=== PATIENT | female | born 1955 | race Caucasian/White ===

== ENCOUNTER 2021-09-30 14:24 | Outpatient (CLI) | payer OTHER ==
[2021-09-30 14:48] LABS: CREATININE 0.7 mg/dL (0.4-1.0)
[2021-09-30] MEDS ORDERED: IOPAMIDOL-300 100 ML VIAL ONE (14:50)
[2021-09-30] MEDS ORDERED: IOVERSOL 320 50 ML VIAL ONE (14:50)
[2021-09-30] MEDS ORDERED: IOPAMIDOL-300 100 ML VIAL IVP ONE (15:58)
[2021-09-30] MEDS ORDERED: IOVERSOL 320 50 ML VIAL PO ONE (15:58)
--- NOTE | 2021-09-30 16:32 | CT Report ---
PROCEDURE: Abdomen/Pelvis W INDICATIONS: ENDOMETRIAL CA CONTRAST: IV CONTRAST: Isovue 300 ml: 100 PO CONTRAST: Optiray 320 ml50 TECHNIQUE: After the administration of contrast, 5 mm thick sections acquired from the diaphragms to the sym physis. 5 mm thick coronal and sagittal reformats were acquired. For radiation dose reduction, the following was used: automated exposure control, adjustment of mA and/or kV according to patient size . COMPARISON: None. FINDINGS: Image quality: Excellent. ABDOMEN: Lung bases: See separately dictated CT of the chest Solid organs: Liver and spleen are normal in size and enhancement. Gallbladder is normal Biliary s ystem is non dilated. Pancreas enhances normally. No adrenal nodules. Kidneys demonstrate normal s ize and enhancement, without hydronephrosis. The right kidney has a 4 cm cyst. Peritoneum and bowel: Bowel loops demonstrate normal wall thickness and caliber. No free fluid or a ir. There is diverticulosis without evidence of diverticulitis. Nodes and vessels: No retroperitoneal or mesenteric adenopathy by size criteria. Aorta and inferior vena cava are normal in size. The aorta has atherosclerotic calcifications. Miscellaneous: No ventral hernias. PELVIS: Genitourinary: Bladder wall thickness is normal. Status post hysterectomy. Miscellaneous: No inguinal hernias or adenopathy. Bones: Bilateral pars defects of L5 with grade 2 anterolisthesis of L5-S1 and severe degenerative ch anges of L5-S1. No suspicious bony lesions. No vertebral body compression fractures. IMPRESSION: 1. No evidence of metastatic disease or adenopathy. 2. Bilateral pars defects of L5 with grade 2 anterolisthesis and severe degenerative changes of L5-S1 . 3. Simple right renal cyst. 4. Diverticulosis without evidence of diverticulitis. 5. Status post hysterectomy. Reviewed by: Cody Fermin on 09/30/2021 4:31 PM PDT Approved by: Cody Fermin on 09/30/2021 4:31 PM PDT Station ID: [id number]
--- NOTE | 2021-09-30 16:37 | CT Report ---
PROCEDURE: CHEST W INDICATIONS: ENDOMETRIAL CA TECHNIQUE: After the administration of intravenous contrast, 1 mm axial images were acquired from the pulmonary apices through the posterior costophrenic angles. Axial 5 mm soft tissue kernel reconstructions were performed as well as 8 mm axial MIP and coronal and sagittal 5 mm reformations. For radiation dose reduction, the following was used: automated exposure control, adjustment of mA and/or kV according to patient size. COMPARISON: None. FINDINGS: Image quality: Excellent. Lungs and pleura: No acute air space opacities. No pleural effusions or pneumothorax. Central and peripheral airways are patent and normal in caliber. Mediastinum: Heart size is normal. No pericardial effusion. No mediastinal or hilar adenopathy by size criteria. Thoracic aorta and central pulmonary arteries are normal in size. Esophagus is filemon l in caliber. No hiatal hernia. The aorta and coronary arteries have atherosclerotic calcifications . Bones and chest wall: No suspicious bony lesions. No vertebral body compression fractures. No axil tuan or supraclavicular adenopathy by size criteria. Thyroid gland is normal. Abdomen: See separately dictated CT of the abdomen and pelvis. IMPRESSION: 1. No evidence of metastatic disease or adenopathy to the chest. 2. Coronary artery calcifications. Reviewed by: Cody Fermin on 09/30/2021 4:35 PM PDT Approved by: Cody Fermin on 09/30/2021 4:35 PM PDT Station ID: [id number]
== END 2021-09-30 14:25 | disposition home or self-care (01) ==
LOC: LAB 14:24
PROVIDERS: ATTEND Obstetrics & Gynecology Gynecologic Oncology
DX: C54.1 Malignant neoplasm of endometrium (principal); M43.16 Spondylolisthesis, lumbar region; M47.817 Spondylosis without myelopathy or radiculopathy, lumbosacral region; N28.1 Cyst of kidney, acquired; K57.90 Diverticulosis of intestine, part unspecified, without perforation or abscess without bleeding; Z90.710 Acquired absence of both cervix and uterus; I25.10 Atherosclerotic heart disease of native coronary artery without angina pectoris
CPT/HCPCS: 36415; 71260; 74177; 82565; 84520; Q9967

== ENCOUNTER 2021-10-17 09:48 | Day surgery (SDC) | payer OTHER ==
[2021-10-17] MEDS ORDERED: CEFAZOLIN SODIUM IN 0.9 % NACL 2 GM/50 ML BAG IV ONE (10:08)
[2021-10-17] MEDS ORDERED: LACTATED RINGERS 1,000 ML IV ONE ×2 (10:26→11:36)
--- NOTE | 2021-10-17 10:38 | ANESTHESIA ---
Pre-Anesthesia VS, & Labs - Diagnosis endometrial cancer - Procedure Portacath placement Vital Signs: Temp Pulse Resp BP Pulse Ox 36.3 C L 89 16 146/93 H 96 10/17/21 10:05 10/17/21 10:05 10/17/21 10:05 10/17/21 10:05 10/17/21 10:05 Height: 5 ft 2 in Weight (kg): 88.1 kg Body Mass Index: 35.5 BMI Classification: Obese - NPO >8 hours - Is Patient ?: No - Lab Results Lab results reviewed: Yes Home Medications and Allergies amLODIPine [Norvasc] 5 mg PO DAILY 10/07/21 hydroCHLOROthiazide [Hydrodiuril] 25 mg PO DAILY 10/07/21 Allergies/Adverse Reactions: Allergies Allergy/AdvReac Type Severity Reaction Status Date / Time No Known Drug Allergies Allergy Verified 10/13/21 11:07 Anes History & Medical History - Anesthetic History Anesthesia Complications: reports: No previous complications Family history of Anesthesia Complications: Denies Family history of Malignant Hyperthermia: Denies - Medical History Cardiovascular: reports: Hypertension Pulmonary: reports: None Gastrointestinal: reports: None Urinary: reports: None Musculoskeletal: reports: Osteoarthritis, Other Endocrine/Autoimmune: reports: None Skin: reports: Eczema Smoking Status: Never smoker Psychosocial: reports: Anxiety - Surgical History General: reports: Appendectomy, Colonoscopy Eyes Ears Nose Throat (EENT): reports: Tonsil/Adenoidectomy Gynecologic: reports: Hysterectomy Exam General: Alert, Oriented x3, Cooperative, No acute distress Dental: WNL Mouth Openin Fingerbreadth Neck Mobility: Normal Mallampati classification: II Plan Anesthesia Type: General, MAC Consent for Procedure(s) Verified and Reviewed: Yes Code Status: Attempt Resuscitation ASA classification: 2-Mild systemic disease Is this case an emergency?: No
[2021-10-17] MEDS ORDERED: LIDOCAINE-MPF 2% 5 ML VIAL ONE (10:50)
[2021-10-17] MEDS ORDERED: PROPOFOL 500 MG/50 ML 500 MG/50 ML VIAL ONE (10:50)
[2021-10-17] MEDS ORDERED: MIDAZOLAM 2 MG/2 ML VIAL ONE (10:50)
[2021-10-17] MEDS ORDERED: LIDOCAINE 2%-EPI 1:100000 20 ML MDV ONE (10:55)
[2021-10-17] MEDS ORDERED: BUPIVACAINE 0.25% PF 10 ML VIAL ONE ×2 (10:55→11:23)
[2021-10-17] MEDS ORDERED: BUPIVACAINE 0.25% PF 10 ML VIAL SUBQ ONE ×2 (11:17)
[2021-10-17] MEDS ORDERED: LIDOCAINE MPF 2%-EPI 1:200000 20 ML VIAL SUBQ ONE ×2 (11:18)
--- NOTE | 2021-10-17 11:31 | OPERATIVE REPORT ---
Operative Report - General Procedure Date: 10/17/21 Planned Procedure: Left subclavian port Pre-Op Diagnosis: Endometrial Cancer Procedure Performed: Left subclavian port Post Op Diagnosis: Endometrial Cancer - Procedure Note Primary Surgeon: Ebony Anesthesia Provider: EVELIO Servin Anesthesia Technique: Local, MAC Pathology: None Estimated Blood Loss (mL): 5 Findings: Port in good position in the SVC Complications: None apparent - Other Other Information/Narrative: After obtaining informed consent, the patient is brought to the operating room and placed in supine position on the operating table. Following successful induction of sedation with monitored anesthesia care and appropriate padding of all bony prominences, the left chest and neck were prepped and draped in the st andard surgical fashion. A timeout was held per scope protocol. All elements of the surgical safety checklist were followed before, during, and after the procedure. Following infiltration with local anesthetic to create a field block, the left subclavian vein was accessed in the deltopectoral groove. The J-wire was gently placed into the vein. Fluoroscopy was used to confirm the position of the wire and in the subclavian vein. We anesthetized the existing healed scar in the area around it for placement of the port itself. An incision was created here and carried down through the skin and subcutaneous tissue. A pocket was created with blunt dissection. The port tubing was attached to the tunneling device and passed from the access site of the vein into the pocket. It was trimmed to an appropriate length and the port attached. The port was sewn into place in the pocket. The dilator and introducer were then passed over the J-wire that was in the subclavian vein. The J-wire and dilator were removed leaving only the introducer. The tubing was then passed through the introducer and the introducer cracked and removed per nursing student's directions. The port was then checked for function and flushed and lorna easily. Additional local anesthetic was applied to the chest wall. The port pocket was closed with interrupted Vicryl sutures and Monocryl stitches were placed in both skin incision sites. All sponge, needle, and instrument counts were correct at the conclusion of the case. Chest x-ray in the postanesthesia care unit revealed the port in good position in the superior vena cava without evidence of pneumothorax.
[2021-10-17 11:45] VITALS: BP 144/72
--- NOTE | 2021-10-17 13:04 | XRAY Report ---
PROCEDURE: Post Port Placement 1V CXR INDICATIONS: LEFT PORT TECHNIQUE: One view of the chest was acquired. COMPARISON: CT chest dated 09/30/2021 FINDINGS: Surgical changes and devices: There is a left-sided tunneled port device with the distal tip projecti ng over the lower SVC. Lungs and pleura: No pleural effusions or pneumothorax. Lungs are clear. Mediastinum: Mediastinal contours appear normal. Heart size is normal. Bones and chest wall: No suspicious bony lesions. Overlying soft tissues appear unremarkable. IMPRESSION: Left-sided tunneled port device with the distal tip of the catheter projecting over the lower SVC. No acute cardiopulmonary abnormalities. No pneumothorax. Reviewed by: Jose Maria Oden MD on 10/17/2021 1:03 PM PDT Approved by: Jose Maria Oden MD on 10/17/2021 1:03 PM PDT Station ID: [id number]
--- NOTE | 2021-10-17 13:29 | XRAY Report ---
PROCEDURE: OR Port-A-Cath INDICATIONS: ENDOMETRIAL CANCER TECHNIQUE: Single spot fluoroscopic image of the chest. COMPARISON: CT chest 09/30/2021, chest radiograph 10/17/2021 FINDINGS: Single intraprocedural fluoroscopic images demonstrate a left-sided catheter with tip projecting over the superior vena cava. Injected contrast material is seen within the superior vena cava pointing to the right atrium. IMPRESSION: Intraoperative fluoroscopic image demonstrates a left-sided catheter with tip in the superior vena ca va. Reviewed by: Levi Grace MD on 10/17/2021 1:28 PM PDT Approved by: Levi Grace MD on 10/17/2021 1:28 PM PDT Station ID: [id number]
--- NOTE | 2021-10-17 14:19 | ANESTHESIA POST OP EVALUATION ---
Anesthesia Post Eval - Post Anesthesia Eval Vitals: Last Vital Signs Temp 36.3 C L 10/17/21 11:33 Pulse 85 10/17/21 11:33 Resp 16 10/17/21 11:33 BP 144/72 H 10/17/21 11:33 Pulse Ox 97 10/17/21 11:33 CV Function Including HR & BP: Stable Pain Control: Satisfactory Nausea & Vomiting: Negative Mental Status: Baseline Respiratory Status: Airway Patent Hydration Status: Satisfactory Anesthesia Complications: None
== END 2021-10-17 09:49 | disposition home or self-care (01) ==
LOC: SDS 09:48
PROVIDERS: ATTEND Surgery
DX: C54.1 Malignant neoplasm of endometrium (principal); C78.6 Secondary malignant neoplasm of retroperitoneum and peritoneum; E66.9 Obesity, unspecified; Z68.35 Body mass index [BMI] 35.0-35.9, adult

== ENCOUNTER 2022-03-10 10:30 | Outpatient (CLI) | payer OTHER | END 2022-03-10 10:31 | disposition home or self-care (01) | LOC: LAB.R 10:30 | PROVIDERS: ATTEND Obstetrics & Gynecology Gynecologic Oncology | DX: C54.1 Malignant neoplasm of endometrium (principal) | CPT/HCPCS: 86304 ==

== ENCOUNTER 2022-07-07 11:06 | Outpatient (CLI) | payer MEDICARE | END 2022-07-07 11:07 | disposition home or self-care (01) | LOC: LAB 11:06 | PROVIDERS: ATTEND Obstetrics & Gynecology Gynecologic Oncology | DX: C54.1 Malignant neoplasm of endometrium (principal) | CPT/HCPCS: 36415; 86304 ==

== ENCOUNTER 2022-09-06 08:56 | Outpatient (CLI) | payer MEDICARE ==
[2022-09-06 15:47] LABS: ALBUMIN 4.2 g/dL (3.2-5.5); ALBUMIN/GLOBULIN RATIO 1.8 (1.0-2.2); ALKALINE PHOSPHATASE 63 IU/L (42-121); ALT ALANINE AMINOTRANSFERASE 26 IU/L (10-60); AST ASPARTATE AMINOTRANSFERASE 26 IU/L (10-42); BILIRUBIN,TOTAL 0.7 mg/dL (0.2-1.0); BUN - BLOOD UREA NITROGEN 16 mg/dL (6-20); CALCIUM 9.1 mg/dL (8.5-10.3); CARBON DIOXIDE - CO2 30 mmol/L (21-32); CHLORIDE 99 mmol/L (101-111); CHOL/HDL RATIO 2.8 (<4.4); CHOLESTEROL 277 mg/dL; CREATININE 0.6 mg/dL (0.4-1.0); GFR - MDRD 100 (>89); GLUCOSE 113 mg/dL (70-100); HDL CHOLESTEROL 100 mg/dL; LDL CHOLESTEROL,CALCULATED 166 mg/dL; LDL/HDL RATIO 1.7 (<4.4); POTASSIUM 3.6 mmol/L (3.5-5.0); SODIUM 136 mmol/L (135-145); TOTAL PROTEIN 6.5 g/dL (6.7-8.2); TRIGLYCERIDES 57 mg/dL; VLDL CHOLESTEROL 11 mg/dL
--- NOTE | 2022-09-14 08:49 | Mammography Report ---
BILATERAL DIGITAL SCREENING MAMMOGRAM 3D/2D WITH EXAGGERATED CC: 09/06/2022 CLINICAL: Routine screening. Family history of breast cancer. No prior exams were available for comparison. There are scattered areas of fibroglandular density in both breasts (category b / 25%-50% glandular t issue). There is a possible irregular asymmetry in the right breast middle depth superior region seen on the mediolateral oblique view only. There is possible subtle architectural distortion associated with th e asymmetry. No other significant masses, calcifications, or other findings are seen in either breast. IMPRESSION: INCOMPLETE: NEEDS ADDITIONAL IMAGING EVALUATION The possible irregular asymmetry in the right breast is indeterminate. Additional views with possibl e ultrasound are recommended. Based on the Tyrer Cuzick model (a risk assessment model) the patients lifetime risk is 5.7% and her 10 year risk is 2.7%. According to the ACR, ACS, and NCCN guidelines, an annual breast MRI exam brii g with mammogram is recommended if the patients lifetime risk is 20% or greater. This exam was interpreted at Station ID: [id number]. NOTE: For mammograms, a report in lay terms will be sent to the patient. Approximately 15% of breast malignancies will not be visualized mammographically. In the management of a palpable breast mass, a negative mammogram must not discourage biopsy of a clinically suspicious lesion. Electronically Signed By: Jose Maria Oden M.D. aty/:09/13/2022 16:22:55 ACR BI-RADS Category 0: Incomplete 3340F PARENCHYMAL PATTERN: (A) - The breast(s) demonstrate(s) scattered fibroglandular densities. BI-RADS CATEGORY: (0) - 0 Mammo and [place] [id number] Immediate follow-up LATERALITY: (R)
== END 2022-09-06 08:57 | disposition home or self-care (01) ==
LOC: DI.S 08:56
DX: I10 Essential (primary) hypertension (principal); Z12.31 Encounter for screening mammogram for malignant neoplasm of breast; Z80.3 Family history of malignant neoplasm of breast; R92.8 Other abnormal and inconclusive findings on diagnostic imaging of breast
CPT/HCPCS: 36415; 80053; 80061; 83721

== ENCOUNTER 2022-10-23 10:51 | Outpatient (CLI) | payer MEDICARE ==
--- NOTE | 2022-10-24 11:32 | Ultrasound Report ---
LIMITED ULTRASOUND OF RIGHT BREAST: 10/23/2022 CLINICAL: Patient returns today to evaluate a focal asymmetry in the right breast. Comparison is made to exams dated: 10/23/2022 mammogram and 09/06/2022 mammogram - [facility]. Color flow ultrasound of the right breast 10-11 o'clock region was performed on the areas of interest . Presley scale images of the real-time examination were reviewed. IMPRESSION: NEGATIVE There is no sonographic evidence of malignancy. There is no sonographic abnormality seen in the right breast to correspond with the questionble mammo graphic abnormality. Additionally, the mammographic finding was much less conspicuous on additional views and likely represents normal fibroglandular tissue. Return to annual mammogram screening schedule is recommended. This exam was interpreted at Station ID: [id number]. Electronically Signed By: Herlinda Michaels M.D. lk/:10/23/2022 12:02:21 Ultrasound BI-RADS: 1 Negative BI-RADS CATEGORY: (1) - 1 Mammogram [id number] return to screening LATERALITY: (B)
--- NOTE | 2022-10-24 11:32 | Mammography Report ---
UNILATERAL RIGHT DIGITAL DIAGNOSTIC MAMMOGRAM 3D/2D: 10/23/2022 CLINICAL: Patient returns today to evaluate an asymmetry in the right breast. Comparison is made to exam dated: 09/06/2022 mammogram - [facility]. There are scattered areas of fibroglandular density in the right breast (category b / 25%-50% glandul ar tissue). The possible asymmetry in the right breast middle depth superior region seen on the mediolateral obli que view only is less prominent on additional views. No other significant masses or calcifications are seen in the breast. IMPRESSION: INCOMPLETE: NEEDS ADDITIONAL IMAGING EVALUATION The possible irregular asymmetry in the right breast is indeterminate. A targeted ultrasound of the right breast is recommended and will be performed immediately following this exam. Based on the Tyrer Cuzick model (a risk assessment model) the patients lifetime risk is 5.7% and her 10 year risk is 2.7%. According to the ACR, ACS, and NCCN guidelines, an annual breast MRI exam brii g with mammogram is recommended if the patients lifetime risk is 20% or greater. This exam was interpreted at Station ID: [id number]. NOTE: For mammograms, a report in lay terms will be sent to the patient. Approximately 15% of breast malignancies will not be visualized mammographically. In the management of a palpable breast mass, a negative mammogram must not discourage biopsy of a clinically suspicious lesion. Electronically Signed By: Herlinda Michaels M.D. lk/:10/23/2022 11:45:01 ACR BI-RADS Category 0: Incomplete 3340F PARENCHYMAL PATTERN: (A) - The breast(s) demonstrate(s) scattered fibroglandular densities. BI-RADS CATEGORY: (0) - 0 Ultrasound [id number] Immediate follow-up LATERALITY: (B)
== END 2022-10-23 10:52 | disposition home or self-care (01) ==
LOC: DI 10:51
PROVIDERS: ATTEND Internal Medicine
DX: R92.8 Other abnormal and inconclusive findings on diagnostic imaging of breast (principal)

== ENCOUNTER 2022-11-17 11:50 | Outpatient (CLI) | payer MEDICARE | END 2022-11-17 11:51 | disposition home or self-care (01) | LOC: LAB.S 11:50 | PROVIDERS: ATTEND Obstetrics & Gynecology Gynecologic Oncology | DX: C54.1 Malignant neoplasm of endometrium (principal) | CPT/HCPCS: 36415; 86304 ==

== ENCOUNTER 2023-02-19 11:52 | Outpatient (CLI) | payer MEDICARE | END 2023-02-19 11:53 | disposition home or self-care (01) | LOC: LAB.S 11:52 | PROVIDERS: ATTEND Obstetrics & Gynecology Gynecologic Oncology | DX: C54.1 Malignant neoplasm of endometrium (principal) | CPT/HCPCS: 36415; 86304 ==

== ENCOUNTER 2023-05-14 13:33 | Outpatient (CLI) | payer MEDICARE | END 2023-05-14 13:34 | disposition home or self-care (01) | LOC: LAB.S 13:33 | PROVIDERS: ATTEND Registered Nurse Obstetric, High-Risk | DX: Z08 Encounter for follow-up examination after completed treatment for malignant neoplasm (principal); C54.1 Malignant neoplasm of endometrium; Z85.42 Personal history of malignant neoplasm of other parts of uterus | CPT/HCPCS: 36415; 86304 ==

== ENCOUNTER 2023-08-15 10:30 | Outpatient (CLI) | payer MEDICARE | END 2023-08-15 10:31 | disposition home or self-care (01) | LOC: LAB.S 10:30 | PROVIDERS: ATTEND Registered Nurse Obstetric, High-Risk | DX: Z08 Encounter for follow-up examination after completed treatment for malignant neoplasm (principal); C54.1 Malignant neoplasm of endometrium; Z85.42 Personal history of malignant neoplasm of other parts of uterus | CPT/HCPCS: 36415; 86304 ==

== ENCOUNTER 2023-11-08 09:35 | Outpatient (CLI) | payer MEDICARE | END 2023-11-08 09:36 | disposition home or self-care (01) | LOC: LAB.S 09:35 | PROVIDERS: ATTEND Registered Nurse Obstetric, High-Risk | DX: Z08 Encounter for follow-up examination after completed treatment for malignant neoplasm (principal); Z85.42 Personal history of malignant neoplasm of other parts of uterus | CPT/HCPCS: 36415; 86304 ==

== ENCOUNTER 2024-02-29 10:36 | Outpatient (CLI) | payer MEDICARE ==
[2024-02-29 15:51] LABS: ALBUMIN 4.5 g/dL (3.2-5.5); ALBUMIN/GLOBULIN RATIO 2.1 (1.0-2.2); ALKALINE PHOSPHATASE 49 IU/L (42-121); ALT ALANINE AMINOTRANSFERASE 20 IU/L (10-60); AST ASPARTATE AMINOTRANSFERASE 18 IU/L (10-42); BILIRUBIN,TOTAL 0.4 mg/dL (0.2-1.0); BUN - BLOOD UREA NITROGEN 19 mg/dL (6-20); CALCIUM 9.6 mg/dL (8.5-10.3); CARBON DIOXIDE - CO2 32 mmol/L (21-32); CHLORIDE 102 mmol/L (101-111); CHOL/HDL RATIO 2.7 (<4.4); CHOLESTEROL 288 mg/dL; CREATININE 0.6 mg/dL (0.6-1.3); GFR - MDRD 100 (>89); GLUCOSE 118 mg/dL (74-104); HDL CHOLESTEROL 105 mg/dL; LDL CHOLESTEROL,CALCULATED 171 mg/dL; LDL/HDL RATIO 1.6 (<4.4); POTASSIUM 3.9 mmol/L (3.5-4.5); SODIUM 141 mmol/L (135-145); TOTAL PROTEIN 6.6 g/dL (6.4-8.9); TRIGLYCERIDES 61 mg/dL; VLDL CHOLESTEROL 12 mg/dL
== END 2024-02-29 10:37 | disposition home or self-care (01) ==
LOC: LAB.S 10:36
PROVIDERS: ATTEND Internal Medicine
DX: I10 Essential (primary) hypertension (principal)
CPT/HCPCS: 36415; 80053; 80061; 83721